=== PATIENT | male | born 1990 | race Caucasian/White ===

== ENCOUNTER → 2018-12-03 | Day surgery (SDC) | payer BC ==
--- NOTE | 2018-11-24 19:22 | HP ---
CC: Caitlyn Betancur NP * ADMITTING HISTORY AND PHYSICAL: DATE OF ADMISSION: 12/03/18 ADMITTING DIAGNOSES: 1. Left hydronephrosis. 2. Probable left ureteropelvic junction obstruction (congenital). SURGICAL PROCEDURE: Cystoscopy left retrograde, left ureteral balloon dilatation, and left stent insertion. SURGEON: Dr. Jacinto. HISTORY OF PRESENT ILLNESS: Joel Mejia is a 28-year-old gentleman who initially had left flank pain about 6 years ago. At that time, he was told that it was musculoskeletal and has had pain every couple of months for the last few years and the pain, when it became more intense, would last for 12 to 24 hours. The last episode was about a month ago, and he had a workup which to me appears consistent with a partial left ureteropelvic junction obstruction with a diuretic nuclear scan showing time to excretion of half of the radioisotope of 43 minutes from the left side. I discussed the options with him including waiting to see if the pain recurs or referral for pyeloplasty or an attempt at balloon dilation and stent insertion. He chose the last option and he is now being brought in for an attempt at balloon dilatation and left stent insertion understanding that this is certainly not guaranteed to be a permanent cure for this condition and he may end up requiring a pyeloplasty if the obstruction recurs. PAST MEDICAL HISTORY: Unremarkable. PAST SURGICAL HISTORY: Significant for tonsillectomy. MEDICATIONS ON ADMISSION: None. ALLERGIES AND INTOLERANCES: MAXALT. FAMILY HISTORY: Negative for renal calculi or chronic kidney disease. SOCIAL HISTORY: Smoking history: He is a nonsmoker (chews tobacco). REVIEW OF SYSTEMS: He is otherwise in excellent health. There is no history of diabetes mellitus or any other major systemic illness. PHYSICAL EXAMINATION GENERAL: Reveals a pleasant, healthy-appearing young gentleman. VITAL SIGNS: Blood pressure is 132/80, pulse 77 per minute and regular, oxygen saturation 98% on room air, temperature 97. LUNGS: Clear bilaterally. CARDIOVASCULAR: Regular rate and rhythm. S1 and S2. ABDOMEN: Soft with mild left flank tenderness. IMPRESSION: A 28-year-old gentleman with left hydronephrosis likely related to congenital left ureteropelvic junction obstruction. PLAN: Planned procedure is left retrograde, left ureteral balloon dilatation, and left stent insertion. [id number]/[facility] #: [id number] [facility]
[~2018-12-03] MED LIST: Buffered Lidocaine 1% SYRIN* 1 ML/SYRINGE INTRADERM ONE; Dexamethasone IV* 4 MG/ML 1 ML (4 MG) ONE; Furosemide IV* 10 MG/ML 2 ML VIAL (20 MG) ONE; HYDROmorphone INJ1* 1 MG/ML SYRINGE IV PRN; Iohexol 180 (CONTRAST) 10 ML SDV IV ONE; Lactated Ringers 1000 ML Bag* 1,000 ML IV SCH; Lidocaine 2% JELLY* 6 ML JELLY TOPICAL ONE; Lidocaine 2% PF * 5 ML VIAL ONE; Midazolam* 1 MG/ML 5 ML VIAL (5 MG) ONE; Naloxone* 0.4 MG/ML 1 ML VIAL IV PRN; Ondansetron INJ* 2 MG/ML VIAL IV PRN; Ondansetron INJ* 2 MG/ML VIAL ONE; Propofol* 10 MG/ML 20 ML BTL ONE; cefTRIAXone(*) 2 GM ADDV.VIAL IVPB ONE; fentaNYL* 50 MCG/ML 2 ML VIAL (100 MCG VIAL) IV PRN; fentaNYL* 50 MCG/ML 2 ML VIAL (100 MCG VIAL) ONE; oxyCODONE/Acetamin 5/325 MG* TAB PO PRN
--- NOTE | 2018-12-03 09:45 | OP ---
CC: Caitlyn Betancur NP * DATE OF OPERATION: 12/03/18 - [facility] DATE OF : 86 SURGEON: Gonzalo Jacinto MD. ANESTHESIOLOGIST: Dr. Means. ANESTHESIA: General. PRE-OP DIAGNOSES: 1. Left hydronephrosis. 2. Left ureteropelvic junction obstruction (congenital). POST-OP DIAGNOSES: 1. Left hydronephrosis. 2. Left ureteropelvic junction obstruction (congenital). OPERATIVE PROCEDURES: Cystoscopy, left retrograde pyelogram, left ureteral balloon dilatation, and left stent insertion. COMPLICATIONS: None. POSTOPERATIVE CONDITION: Stable. STENT USED: 7-Belarusian stent, left ureter. OPERATIVE FINDINGS: Severe left hydronephrosis with narrowing at the left ureteropelvic junction (possible crossing vessel). INDICATIONS: Joel Mejia is a 28-year-old gentleman with a history of episodic left flank pain secondary to what I think is a congenital ureteropelvic junction obstruction. DESCRIPTION OF PROCEDURE: After induction of general anesthesia, the patient was placed in the dorsal lithotomy position. Sequential compression devices were in place and functioning. Initial cystoscopy revealed a normal-appearing urethra and the bladder was examined and appeared unremarkable. A guidewire was introduced into the left ureter and retrograde pyelogram revealed severe right hydronephrosis with a markedly dilated left renal pelvis. There was distinct narrowing of the ureteropelvic junction with an appearance suggestive of possibly a crossing vessel. After completion of the retrograde pyelogram, balloon dilatation of the ureteropelvic junction was carried out for 5 minutes under fluoroscopic monitoring. Once this was completed, a 7-Belarusian [place] stent was introduced and positioned under fluoroscopy with good proximal and distal positioning obtained. A 16-Belarusian Rey catheter was placed for temporary bladder drainage. The patient tolerated the procedure satisfactorily and was transferred back to the recovery area in stable condition. [id number]/[facility] #: [id number] MTDD
[2018-12-03 09:47] VITALS: BP 136/82
== END | disposition home or self-care (01) ==
LOC: OR 05:37
PROVIDERS: ATTEND Urology
DX: N13.1 Hydronephrosis with ureteral stricture, not elsewhere classified (principal); Z72.0 Tobacco use
CPT/HCPCS: 74420; C2625; J0696; J1100; J1940; J2250; J2405; J2704; J3010

== ENCOUNTER 2019-06-18 05:48 | Day surgery (SDC) | payer BC ==
--- NOTE | 2019-06-16 16:47 | HP ---
CC: Caitlyn Betancur NP; Dr. Elias Navarro, Department of Urology [facility]; Dr. Jacinto* ADMITTING HISTORY AND PHYSICAL: DATE OF ADMISSION: 06/18/19 ADMITTING DIAGNOSES: 1. Left ureteropelvic junction obstruction. 2. Left hydronephrosis. SURGICAL PROCEDURE: Left retrograde and left ureteral stent insertion. SURGEON: Dr. Jacinto. HISTORY OF PRESENT ILLNESS: Joel Mejia is a 28-year-old gentleman with history of left ureteropelvic junction obstruction, who had initially undergone left stent insertion in November of 2018. The stent was subsequently removed 6 -7 weeks later and when seen in followup, he had developed recurrent left hydronephrosis. He was evaluated by Dr. Navarro at [facility] for consideration of robotic left pyeloplasty; however, this had to postponed because of the current COVID situation and his follow up ultrasound on 06/16/19 revealed moderate to severe left hydronephrosis with mild to moderate cortical thinning and increased echogenicity. I am concerned about potential loss of renal function given the persistent obstruction and he is now being brought in for urgent left stent insertion which will then be left in place till he can have his definitive surgery rescheduled at [facility]. PAST MEDICAL HISTORY: Significant for the above mentioned history of left ureteropelvic junction obstruction. PAST SURGICAL HISTORY: Significant for left stent insertion in November of 2018 and tonsillectomy. MEDICATIONS ON ADMISSION: None. ALLERGIES AND INTOLERANCES: MAXALT. FAMILY HISTORY: Negative for stones or any chronic renal disease. SOCIAL HISTORY: Smoking history: He is a nonsmoker (chews tobacco). REVIEW OF SYSTEMS: He is otherwise in excellent health. He denies any chest pain or shortness of breath. There is no history of diabetes mellitus or any other major systemic illness. PHYSICAL EXAMINATION GENERAL: Reveals a pleasant, healthy-appearing young gentleman. VITAL SIGNS: Blood pressure is 110/74, pulse 61 per minute and regular, temperature 98.4, oxygen saturation 98% on room air. LUNGS: Clear bilaterally. CARDIOVASCULAR: Regular rate and rhythm. S1 and S2. ABDOMEN: Soft with mild left flank tenderness. IMPRESSION: A 28-year-old gentleman with moderate to severe left hydronephrosis secondary to left ureteropelvic junction obstruction. PLAN: Planned procedure is left retrograde and left stent insertion. [id number]/[facility] #: [id number] [facility]
[~2019-06-18 05:48] MED LIST changes: -Dexamethasone IV* 4 MG/ML 1 ML (4 MG) ONE; -Furosemide IV* 10 MG/ML 2 ML VIAL (20 MG) ONE; -HYDROmorphone INJ1* 1 MG/ML SYRINGE IV PRN; -Iohexol 180 (CONTRAST) 10 ML SDV IV ONE; -Lactated Ringers 1000 ML Bag* 1,000 ML IV SCH; -Lidocaine 2% JELLY* 6 ML JELLY TOPICAL ONE; -Lidocaine 2% PF * 5 ML VIAL ONE; -Midazolam* 1 MG/ML 5 ML VIAL (5 MG) ONE; -Naloxone* 0.4 MG/ML 1 ML VIAL IV PRN; -Ondansetron INJ* 2 MG/ML VIAL IV PRN; -Ondansetron INJ* 2 MG/ML VIAL ONE; -Propofol* 10 MG/ML 20 ML BTL ONE; -cefTRIAXone(*) 2 GM ADDV.VIAL IVPB ONE; -fentaNYL* 50 MCG/ML 2 ML VIAL (100 MCG VIAL) IV PRN; -fentaNYL* 50 MCG/ML 2 ML VIAL (100 MCG VIAL) ONE; -oxyCODONE/Acetamin 5/325 MG* TAB PO PRN
[2019-06-18] MEDS ORDERED: Lactated Ringers 1000 ML Bag* 1,000 ML IV SCH (06:00)
[2019-06-18] MEDS ORDERED: Famotidine IV* 10 MG/ML 2 ML (20 mg) IV ONE (06:00)
[2019-06-18] MEDS ORDERED: Dexamethasone IV* 4 MG/ML 1 ML (4 MG) IV SLOW PU ONE (06:00)
[2019-06-18] MEDS ORDERED: Dexamethasone IV* 4 MG/ML 1 ML (4 MG) ONE (06:15)
[2019-06-18] MEDS ORDERED: Buffered Lidocaine 1% SYRIN* 1 ML/SYRINGE INTRADERM ONE (06:16)
[2019-06-18] MEDS ORDERED: cefTRIAXone(*) 2 GM ADDV.VIAL IVPB ONE (06:16)
[2019-06-18] MEDS ORDERED: Famotidine IV* 10 MG/ML 2 ML (20 mg) ONE (06:16)
[2019-06-18] MEDS ORDERED: Iohexol 180 (CONTRAST) 10 ML SDV IV ONE (07:08)
[2019-06-18] MEDS ORDERED: Midazolam* 1 MG/ML 2 ML VIAL (2 MG) ONE ×2 (07:19→08:15)
[2019-06-18] MEDS ORDERED: fentaNYL* 50 MCG/ML 2 ML VIAL (100 MCG VIAL) ONE (07:19)
[2019-06-18 09:30] VITALS: BP 122/68
--- NOTE | 2019-06-18 10:08 | OP ---
CC: Caitlyn Betancur NP; Dr. Elias Navarro, Department of Urology, [facility] OPERATIVE REPORT: DATE OF OPERATION: 06/18/19 DATE OF : 86 SURGEON: Gonzalo Jacinto MD ANESTHESIOLOGIST: Dr. Contreras. ANESTHESIA: Intravenous sedation. PRE-OP DIAGNOSES: 1. Left hydronephrosis. 2. Left ureteropelvic junction obstruction. POST-OP DIAGNOSES: 1. Left hydronephrosis. 2. Left ureteropelvic junction obstruction. OPERATIVE PROCEDURES: Cystoscopy, left retrograde pyelogram, and left ureteral stent insertion. COMPLICATIONS: None. STENT USED: 6-Chinese 28-cm silicone stent, left ureter. POSTOPERATIVE CONDITION: Stable. INDICATIONS: Joel Mejia is a 28-year-old gentleman with a history of left hydronephrosis secondar y to left ureteropelvic junction obstruction. He had been scheduled for definitive repair at [facility] but unfortunately that had to be postponed due to the COVID situation and he is now being brought in for left stent insertion. OPERATIVE FINDINGS: Left hydronephrosis consistent with left ureteropelvic junction obstruction. DESCRIPTION OF PROCEDURE: After induction of intravenous sedation, the patient was placed in dorsal lithotomy position. Sequential compression devices were in place and functioning. Initial cystoscop y revealed a normal appearing urethra and a normal appearing bladder. A guidewire was introduced int o the left ureter. Retrograde pyelogram revealed fairly severe left hydronephrosis with a narrowing a t the left ureteropelvic junction possibly representing a crossing vessel. The wire was advanced int o the proximal collecting system and a 6-Chinese 28-cm black silicone stent was threaded over the wire and positioned under fluoroscopy with good proximal and distal positioning obtained. The bladder wa s emptied. The patient tolerated the procedure satisfactorily and was transferred back to the [facility] in stable condition. [id number]/[facility] #: [id number]
== END 2019-06-18 09:35 | disposition home or self-care (01) ==
LOC: OR 05:48
PROVIDERS: ATTEND Urology
DX: Q62.11 Congenital occlusion of ureteropelvic junction (principal); Z72.0 Tobacco use; K44.9 Diaphragmatic hernia without obstruction or gangrene
CPT/HCPCS: 74420; J0696; J1100; J2250; J3010